=== PATIENT | female | born 1955 | race Two or more races ===

== ENCOUNTER 2020-10-04 10:53 | Emergency (ER) | payer BC ==
[~2020-10-04] VITALS: Ht 160 cm; Wt 49.0 kg
[2020-10-04 12:12] LABS: BASOPHILS % (AUTO) 0.1 % (0.0-2.0); EOSINOPHILS % (AUTO) 0.4 % (0.0-6.0); HEMATOCRIT 34 % (33-45); HEMOGLOBIN 11.6 g/dL (11.5-14.8); LYMPHOCYTES # (AUTO) 1.7 /CMM (0.8-4.8); LYMPHOCYTES % (AUTO) 79.1 % (20.0-44.0); MEAN CORPUSCULAR HGB CONC 34 g/dl (31.0-36.0); MEAN CORPUSCULAR VOLUME 96 fL (82-100); MONOCYTES # (AUTO) 0.2 /CMM (0.1-1.30); MONOCYTES % (AUTO) 11.2 % (2.0-12.0); NEUTROPHILS # (AUTO) 0.2 /CMM (1.8-8.9); NEUTROPHILS % (AUTO) 9.2 % (43.0-81.0); PLATELET COUNT (AUTO) 288 /CMM (150-450); RED BLOOD CELL COUNT(AUTO) 3.56 MIL/uL (4.0-5.2); WHITE BLOOD COUNT (AUTO) 2.2 K/uL (4.3-11.0)
[2020-10-04 12:17] LABS: BILIRUBIN,URINE Negative (NEGATIVE); COLOR,URINE YELLOW (YELLOW); LEUKOCYTE ESTERASE ,URINE Trace (NEGATIVE); NITRITE, URINE Negative (NEGATIVE); PH,URINE 7.5 (5.0-8.0); PROTEIN,URINE Negative (NEGATIVE); UGLUCOSE Negative (NEGATIVE); UROBILINOGEN,URINE 0.2 EU/dL (0.2)
[2020-10-04 12:21] LABS: CALCIUM, SERUM 10.4 mg/dL (8.5-10.1); CREATININE 0.5 mg/dL (0.6-1.3); POTASSIUM 3.4 mmol/L (3.5-5.1)
[2020-10-04 12:22] LABS: BACTERIA,URINE Few /HPF (None Seen); SQUAMOUS EPITHELIAL CELL,UR Few /HPF (None Seen)
[2020-10-04 12:27] LABS: ALBUMIN 3.9 g/dL (3.4-5.0); BILIRUBIN,DIRECT 0.1 mg/dL (0.0-0.2); BILIRUBIN,TOTAL 0.4 mg/dL (0.2-1.0); TOTAL PROTEIN, SERUM 7.1 g/dL (6.4-8.2)
--- NOTE | 2020-10-04 12:35 | NUR ---
CALLED DR. DREW REQUESTED BY DR. CAT.
[2020-10-04] MEDS ORDERED: HYDROCODONE/APAP 5/325MG TABLET ONE (12:40)
--- NOTE | 2020-10-04 12:52 | NUR ---
PATIENT CAME BACK FROM CT.
[2020-10-04] MEDS ORDERED: HYDROCODONE/APAP 5/325MG TABLET PO ONE (13:00)
[2020-10-04] MEDS ORDERED: POLY17PO4 PO (13:27)
[2020-10-04] MEDS ORDERED: ONDA4TAB5 PO (13:27)
[2020-10-04] MEDS ORDERED: OXYC-128 PO (13:27)
--- NOTE | 2020-10-04 13:47 | NUR ---
Patient discharged to home in stable condition. Written and verbal after care instructions given to daughter and patient, both verbalizes understanding of instruction.
[2020-10-04 13:48] VITALS: BP 124/76
[2020-10-04 15:36] LABS: BAND % (MANUAL) 2 % (0.0-5.0); LYMPHOCYTES % (MANUAL) 78 % (16-48); NEUTROPHILS % (MANUAL) 5 (42-76); REACTIVE LYMPHOCYTES 6 % (0-0)
[2020-10-04 15:37] LABS: MONOCYTES % (MANUAL) 9 % (0-11.0)
== END 2020-10-04 13:48 | disposition home or self-care (01) ==
LOC: ER 11:01
DX: K59.00 Constipation, unspecified (principal); R11.2 Nausea with vomiting, unspecified; D70.9 Neutropenia, unspecified; Z85.71 Personal history of Hodgkin lymphoma
CPT/HCPCS: 36415; 80048-TC; 80076-TC; 81001; 83690-TC; 85025-TC

== ENCOUNTER 2020-12-04 11:59 | Inpatient (IN) | payer BC ==
[~2020-12-04] VITALS: Ht 160 cm; Wt 43.1 kg
[~2020-12-04 11:59] MED LIST: ONDA4TAB5 PO; OXYC-128 PO; POLY17PO4 PO
--- NOTE | 2020-12-04 12:16 | NUR ---
BIBDAUGHTER FROM HOME TO ER 6. AAOX4. NOT IN RESP DSITRESS. AMBULATORY. BROUGHT IN FOR FEVER, DAUGTHER REPORT 104. UPON TRUAGE PT'S TEMP NOTED @ 100.5. PT NOTED TACHYCARDIC 120S. WAS AT THE BEDSIDE FOR EVAL.
[2020-12-04] MEDS ORDERED: CEFEPIME 1 GM in IV D5W 50 ML IV ONE (12:30)
[2020-12-04] MEDS ORDERED: VANCOMYCIN 1 GM in IV D5W 250 ML IV ONE (12:30)
[2020-12-04] MEDS ORDERED: IV NS 0.9% 1,000 ML BAG IV ONE (12:30)
[2020-12-04 12:44] LABS: BASOPHILS % (AUTO) 0.4 % (0.0-2.0); EOSINOPHILS % (AUTO) 0.2 % (0.0-6.0); HEMATOCRIT 24 % (33-45); HEMOGLOBIN 8.1 g/dL (11.5-14.8); LYMPHOCYTES # (AUTO) 1.2 K/uL (0.8-4.8); LYMPHOCYTES % (AUTO) 11.9 % (20.0-44.0); MEAN CORPUSCULAR HGB CONC 34 g/dl (31.0-36.0); MEAN CORPUSCULAR VOLUME 98 fL (82-100); MONOCYTES # (AUTO) 1.2 K/uL (0.1-1.30); MONOCYTES % (AUTO) 11.9 % (2.0-12.0); NEUTROPHILS # (AUTO) 7.6 K/uL (1.8-8.9); NEUTROPHILS % (AUTO) 75.6 % (43.0-81.0); PLATELET COUNT (AUTO) 374 K/uL (150-450); RED BLOOD CELL COUNT(AUTO) 2.46 MIL/uL (4.0-5.2); WHITE BLOOD COUNT (AUTO) 10.1 K/uL (4.3-11.0)
[2020-12-04 12:51] LABS: CALCIUM, SERUM 9.1 mg/dL (8.5-10.1); CARBON DIOXIDE 28 mmol/L (21-32); CHLORIDE 95 mmol/L (98-107); CREATININE 0.5 mg/dL (0.6-1.3); GLUCOSE 98 mg/dL (74-106); POTASSIUM 3.7 mmol/L (3.5-5.1); SODIUM SERUM 128 mmol/L (136-145); UREA NITROGEN, BLOOD 8 mg/dL (7-18)
[2020-12-04 12:57] LABS: ALANINE AMINOTRANSFERASE 13 U/L (12-78); ALBUMIN 2.9 g/dL (3.4-5.0); ALKALINE PHOSPHATASE 66 U/L (46-116); ASPARTATE AMINOTRANSFERASE 19 U/L (15-37); BILIRUBIN,DIRECT 0.1 mg/dL (0.0-0.2); BILIRUBIN,TOTAL 0.4 mg/dL (0.2-1.0); TOTAL PROTEIN, SERUM 6.4 g/dL (6.4-8.2)
[2020-12-04 13:10] LABS: BAND % (MANUAL) 17 % (0.0-5.0); LYMPHOCYTES % (MANUAL) 18 % (16-48); METAMYELOCYTES % 3 % (0-0); MONOCYTES % (MANUAL) 8 % (0-11.0); MYELOCYTES % 2 % (0-0); NEUTROPHILS % (MANUAL) 52 (42-76)
[2020-12-04] MEDS ORDERED: DEXA4TAB PO (13:10)
[2020-12-04 13:23] LABS: BILIRUBIN,URINE NEGATIVE (NEGATIVE); COLOR,URINE YELLOW (YELLOW); LEUKOCYTE ESTERASE ,URINE TRACE (NEGATIVE); NITRITE, URINE NEGATIVE (NEGATIVE); PH,URINE 6.5 (5.0-8.0); PROTEIN,URINE NEGATIVE (NEGATIVE); UGLUCOSE NEGATIVE (NEGATIVE); UROBILINOGEN,URINE 0.2 EU/dL (0.2)
--- NOTE | 2020-12-04 13:35 | NUR ---
paged Dr. Yao (onjcologist) and left a message
[2020-12-04 13:36] LABS: BACTERIA,URINE Few /HPF (None Seen); RBC,URINE 0-2 /HPF (0-2); SQUAMOUS EPITHELIAL CELL,UR Moderate /HPF (None Seen)
[2020-12-04] MEDS ORDERED: ACETAMINOPHEN ES 500 MG TABLET ONE (15:30)
[2020-12-04] MEDS ORDERED: ACETAMINOPHEN ES 500 MG TABLET PO ONE (15:30)
[2020-12-04] MEDS ORDERED: MAGNESIUM HYDROXIDE 30 ML UDC PO PRN (16:00)
[2020-12-04] MEDS ORDERED: HYDROCODONE/APAP 5/325MG TABLET PO PRN (16:00)
[2020-12-04] MEDS ORDERED: MORPHINE SULFATE INJ 2 MG/ML DISP.SYRIN IV PRN (16:00)
[2020-12-04] MEDS ORDERED: ONDANSETRON HCL/PF 4 MG/2 ML VIAL IVP PRN (16:00)
[2020-12-04] MEDS ORDERED: TEMAZEPAM 15 MG CAPSULE PO PRN (16:00)
[2020-12-04] MEDS ORDERED: DEXAMETHASONE 4 MG TABLET PO SCH (16:00)
[2020-12-04] MEDS ORDERED: MAG HYDROX/AL HYDROX/SIMETH 30 ML UDC PO PRN (16:00)
[2020-12-04] MEDS ORDERED: Z GUARD REMEDY 2 OZ OINT TP PRN (16:00)
--- NOTE | 2020-12-04 17:03 | NUR ---
followed up with laboratory regarding covid result
--- NOTE | 2020-12-04 17:30 | NUR ---
room assignement: [id number]
--- NOTE | 2020-12-04 17:35 | NUR ---
REPORT GIVEN TO ANNIE BELTRE FOR MACHO
--- NOTE | 2020-12-04 18:30 | NUR ---
PT TRANSPORTED TO UNIT ON GURNEY WITH EMT AND RN AT BEDSIDE W/ ACLS PROTOCOL. NAD NOTED DURING TRANSPORT.
--- NOTE | 2020-12-04 18:41 | NUR ---
COMPASS OPERATOR ADMITTING NOTES RECEIVED ADMISSION FROM ER. PATIENT MEDICALLY STABLE AT THIS TIME, A/O X4, ON OXYGEN THERAPY AT 2 LPM VIA NASAL CANULA. TELE MONITOR WITH A CURRENT READING OF SR. IV ACCESS ON LFA G # 20 PRESENT AND INTACT. SAFETY PRECAUTIONS IN PLACE; BED IN LOW POSITION AND LOCKED, RAILS UP X2, CALL LIGHT WITHIN REACH. WILL CONTINUE TO MONITOR PATIENT.
[2020-12-04] MEDS: ENOXAPARIN SODIUM 40 MG/0.4 ML DISP.SYRIN SQ SCH (18:48)
--- NOTE | 2020-12-04 19:06 | NUR ---
MANAGER TRANSMISSION NOTES PATIENT RESTING COMFORTABLY. WILL ENDORSE TO [employer] NURSE FOR MACHO.
[2020-12-04 19:30] VITALS: BP 108/58
--- NOTE | 2020-12-04 19:30 | NUR ---
TELERN HALFLY AWAKE, DAUGHTER AT BEDSIDE. PROVIDED ADMISSION INFO . PATIENT IS ESTONIAN SPEAKING. DAUGHTER TRANSLATING. COOPERATIVE, APPEARS DEPRESSED, STATED WAS SENT BY DR. DREW FROM OFFICE TO BE ADMITTED SEC TO [facility]PS[facility] R/T UTI AND POSS CAP. NO SOB, 95% ON RA. CONTINENT/INCONTINENT. KEPT COMFORTABLE. SAFETY PRECAUTIONS EMPHASIZED WELL UNDERSTTOD. REMINDED TO CALL STAFF FOR ANY ASSISTANCE OR DISCOMFORTS, CALL LIGHT WITHIN REACH. ALL NEEDS ATTENDED. AFEBRILE FOR NOW.
[2020-12-04 20:00] VITALS: BP 108/58
[2020-12-04] MEDS: CEFEPIME 1 GM in IV D5W 50 ML IV SCH (21:16)
[2020-12-04] MEDS: IV NS 0.9% 1,000 ML IV PRN (21:21)
[2020-12-04] MEDS: VANCOMYCIN 0.75 GM in IV D5W 250 ML IV SCH (22:05)
[2020-12-05] VITALS (7 sets, daily range): BP systolic 99–129; BP diastolic 59–62
--- NOTE | 2020-12-05 02:54 | NUR ---
TELERN SR ON THE MONITOR, IVF INFUSING WELL. DUE ANTIBIOTICS ADMINISTERED/ LOW GRADE TEMP 99.8. WAS INCONTINENT, KEPT DRY CLEAN AND COMFORTABLE. CLOSELY WATCHE.D
[2020-12-05] MEDS: VANCOMYCIN 0.75 GM in IV D5W 250 ML IV SCH ×3 (06:10→22:03)
[2020-12-05 06:43] LABS: BASOPHILS # (AUTO) 0.1 K/uL (0.0-0.2); HEMATOCRIT 23 % (33-45); HEMOGLOBIN 7.8 g/dL (11.5-14.8); LYMPHOCYTES # (AUTO) 0.5 K/uL (0.8-4.8); LYMPHOCYTES % (AUTO) 5.3 % (20.0-44.0); MEAN CORPUSCULAR HGB CONC 34 g/dl (31.0-36.0); MEAN CORPUSCULAR VOLUME 98 fL (82-100); MONOCYTES # (AUTO) 0.5 K/uL (0.1-1.30); NEUTROPHILS # (AUTO) 8.8 K/uL (1.8-8.9); NEUTROPHILS % (AUTO) 88.7 % (43.0-81.0); PLATELET COUNT (AUTO) 392 K/uL (150-450); RED BLOOD CELL COUNT(AUTO) 2.35 MIL/uL (4.0-5.2)
--- NOTE | 2020-12-05 06:50 | NUR ---
TELERN ASSISTED TO BSC VOIDED FREELY. IVF CONTINUED.. ALL NEEDS ATENDED.
[2020-12-05 07:01] LABS: CALCIUM, SERUM 8.6 mg/dL (8.5-10.1); CREATININE 0.4 mg/dL (0.6-1.3); MAGNESIUM 2.3 mg/dL (1.8-2.4); PHOSPHORUS 3.2 mg/dL (2.5-4.9); POTASSIUM 3.7 mmol/L (3.5-5.1)
[2020-12-05 07:14] LABS: THYROID STIMULATING HORMONE 0.433 uIU/mL (0.358-3.74); URIC ACID 2.4 mg/dL (2.6-7.2)
--- NOTE | 2020-12-05 07:52 | NUR ---
TELE/RN OPENING NOTES RECEIVED PATIENT IN BED, ALERT AND ORIENTED X3, ABLE TO MAKE NEEDS KNOWN. STABLE ON ROOM AIR. NO DISTRESS NOTED AT THIS TIME. SAFETY PRECAUTIONS IN PLACED. BED LOCKED ON LOWEST POSITION, SIDE RAILS UPX2, CALL LIGHT WITHIN REACH. WILL CONTINUE TO MONITOR PATIENT.
[2020-12-05] MEDS: PANTOPRAZOLE 40 MG TABLET.DR PO SCH (08:34)
[2020-12-05] MEDS ORDERED: DEXAMETHASONE 4 MG TABLET PO SCH (09:00)
[2020-12-05] MEDS: CEFEPIME 1 GM in IV D5W 50 ML IV SCH ×2 (09:06→20:43)
[2020-12-05 10:31] LABS: BAND % (MANUAL) 22 % (0.0-5.0); LYMPHOCYTES % (MANUAL) 4 % (16-48); MONOCYTES % (MANUAL) 4 % (0-11.0); NEUTROPHILS % (MANUAL) 70 (42-76)
[2020-12-05] MEDS: ENSURE ENLIVE 237 ML LIQUID (VANILLA) PO SCH ×2 (12:33→17:05)
[2020-12-05 15:17] LABS: FERRITIN 1410 ng/mL (8-388)
[2020-12-05 15:59] LABS: IRON, SERUM 10 ug/dl (50-175); TOTAL IRON BINDING CAPACITY 134 ug/dl (250-450)
[2020-12-05] MEDS: ACETAMINOPHEN 325 MG TABLET PO PRN (19:22)
--- NOTE | 2020-12-05 19:30 | NUR ---
MS RN NOTES RECEIVED PATIENT IN BED, AWAKE, A&O X 4, ON ROOM AIR TOLERATING WELL, IN NO ACUTE DISTRESS NOTED. IV ACCESS ON LFA G#20 WITH AN ONGOING IVF OF NS 1L X 75CC/HR, INFUSING WELL, NO S/SX OF INFILTRATION NOTED. NO COMPLAINTS OF PAIN AT THIS TIME; SAFETY PRECAUTIONS IN PLACE; BED ON LOWEST LOCKED POSITION, SIDE RAILS UP X 2, CALL LIGHT WITHIN EASY REACH. WILL CONTIUE TO MONITOR PATIENT'S STATUS. .
--- NOTE | 2020-12-05 19:41 | NUR ---
TELE/RN CLOSING NOTES PATIENT IN BED, ALERT AND ORIENTED X3, ABLE TO MAKE NEEDS KNOWN. STABLE ON ROOM AIR. NO DISTRESS NOTED AT THIS TIME. SAFETY PRECAUTIONS IN PLACED. BED LOCKED ON LOWEST POSITION, SIDE RAILS UPX2, CALL LIGHT WITHIN REACH. WILL ENDORSED TO THE NEXT SHIFT FOR MACHO..
--- NOTE | 2020-12-05 20:00 | NUR ---
RN NOTES PATIENT'S TEMP IS 102.7, TYLENOL WAS GIVEN AT 1922. WILL CONTINUE TO MONITOR PATIENT'S TEMP.
[2020-12-05] MEDS: ENOXAPARIN SODIUM 40 MG/0.4 ML DISP.SYRIN SQ SCH (20:46)
[2020-12-05] MEDS: IV NS 0.9% 1,000 ML IV PRN (20:59)
--- NOTE | 2020-12-05 21:19 | NUR ---
RN NOTES RECHECKED PATIENT'S REMP. RESULT WAS 99.7F. WILL CONTINUE TO MONITOR.
[2020-12-06] MEDS: VANCOMYCIN 0.75 GM in IV D5W 250 ML IV SCH ×3 (05:01→22:26)
[2020-12-06 06:39] LABS: CALCIUM, SERUM 8.2 mg/dL (8.5-10.1); CREATININE 0.5 mg/dL (0.6-1.3); POTASSIUM 3.1 mmol/L (3.5-5.1)
[2020-12-06 06:46] LABS: BASOPHILS # (AUTO) 0.1 K/uL (0.0-0.2); EOSINOPHILS % (AUTO) 0.1 % (0.0-6.0); HEMATOCRIT 22 % (33-45); HEMOGLOBIN 7.6 g/dL (11.5-14.8); LYMPHOCYTES # (AUTO) 0.8 K/uL (0.8-4.8); LYMPHOCYTES % (AUTO) 7.2 % (20.0-44.0); MEAN CORPUSCULAR HGB CONC 34 g/dl (31.0-36.0); MEAN CORPUSCULAR VOLUME 97 fL (82-100); MONOCYTES % (AUTO) 8.8 % (2.0-12.0); NEUTROPHILS # (AUTO) 9.5 K/uL (1.8-8.9); NEUTROPHILS % (AUTO) 82.9 % (43.0-81.0); PLATELET COUNT (AUTO) 408 K/uL (150-450); RED BLOOD CELL COUNT(AUTO) 2.31 MIL/uL (4.0-5.2); WHITE BLOOD COUNT (AUTO) 11.5 K/uL (4.3-11.0)
--- NOTE | 2020-12-06 06:49 | NUR ---
MS RN CLOSING NOTES PATIENT IN BED, AWAKE, A&O X 4, ON ROOM AIR TOLERATING WELL, IN NO ACUTE DISTRESS NOTED. PATIENT IS AFEBRILE AT THIS TIME, NO COMPLAINTS OF PAIN. IV ACCESS ON LFA G#20 WITH AN ONGOING IVF OF NS 1L X 75CC/HR, INFUSING WELL, NO S/SX OF INFILTRATION NOTED. NO COMPLAINTS OF PAIN AT THIS TIME; SAFETY PRECAUTIONS IN PLACE; BED ON LOWEST LOCKED POSITION, SIDE RAILS UP X 2, CALL LIGHT WITHIN EASY REACH. ALL NEEDS ATTENDED AND MET, WILL ENDORSE TO ONCOMING SHIFT FOR MACHO.
--- NOTE | 2020-12-06 07:21 | NUR ---
MS RN OPENING NOTES RECEIVED PATIENT IN BED AWAKE, A/O X 4. ABLE TO MAKE NEEDS KNOWN, DENIES PAIN OR ANY DISCOMFORTS AT THIS TIME. ON ROOM AIR, TOLERATING WELL WITH NO ACUTE RESPIRATORY DISTRESS NOTED. IV ACCESS ON LFA G#20 INTACT AND PATENT WITH IVF OF NS @ 75CC/HR, INFUSING WELL, NO S/S OF INFILTRATION NOTED. SAFETY PRECAUTIONS IN PLACE: BED IN LOWEST LOCKED POSITION, SIDE RAILS UP X 2, CALL LIGHT WITHIN EASY REACH. WILL CONTINUE TO MONITOR PT ACCORDINGLY.
[2020-12-06 08:00] VITALS: BP 127/65
[2020-12-06] MEDS: ENSURE ENLIVE 237 ML LIQUID (VANILLA) PO SCH ×3 (08:21→17:22)
[2020-12-06] MEDS: CEFEPIME 1 GM in IV D5W 50 ML IV SCH (08:21)
[2020-12-06] MEDS: PANTOPRAZOLE 40 MG TABLET.DR PO SCH (08:22)
[2020-12-06 09:10] LABS: BAND % (MANUAL) 1 % (0.0-5.0); LYMPHOCYTES % (MANUAL) 5 % (16-48); MONOCYTES % (MANUAL) 10 % (0-11.0); NEUTROPHILS % (MANUAL) 84 (42-76)
[2020-12-06] MEDS ORDERED: POTASSIUM CHLORIDE 20 MEQ TAB.PRT.SR PO ONE (09:30)
--- NOTE | 2020-12-06 11:15 | NUR ---
RN NOTES PT NOTED WITH LOW LEVEL POTASSIUM 3.1 THIS MORNING. ADMINISTERED K-DUR 40MEQ PO ORDERED.
[2020-12-06] MEDS: ACETAMINOPHEN 325 MG TABLET PO PRN (12:16)
[2020-12-06] MEDS ORDERED: MEROPENEM 500 MG in IV NS 0.9% 50 ML IV ONE (13:00)
--- NOTE | 2020-12-06 13:28 | NUR ---
RN NOTES PT WITH T 102.7F THIS MORNING, TYLENOL 650MG PO GIVEN AND COOLING MEASURES DONE. PT CONTINUES ON IV ABX'S ORDERED. DR GAVIN MADE AWARE. WILL CONTINUE TO MONITOR.
--- NOTE | 2020-12-06 17:19 | NUR ---
RN NOTES PT'S TEMP WAS 97.9f AT 1600. WILL CONTINUE TO MONITOR
--- NOTE | 2020-12-06 18:35 | NUR ---
MS RN CLOSING NOTES PATIENT IN BED AWAKE AND WATCHING TV AT THIS TIME. A/O X 4. ABLE TO MAKE NEEDS KNOWN. ON ROOM AIR, TOLERATING WELL WITH NO ACUTE RESPIRATORY DISTRESS NOTED DURING SHIFT. PT HAS PORT-A-CATH ON LCW IN PLACE. IV ACCESS ON LFA G#20 INTACT, PATENT AND FLUSHES WELL, NO S/S OF INFILTRATION NOTED AT SITE NOTED. ALL NEEDS AND CARE ATTENDED WELL. SAFETY PRECAUTIONS KEPT IN PLACE: BED IN LOWEST LOCKED POSITION, SIDE RAILS UP X 2, CALL LIGHT AND BEDSIDE TABLE WITHIN EASY REACH OF PT. WILL ENDORSE MACHO TO ENTERPRISE MOBILITY ARCHITECT NURSE.
--- NOTE | 2020-12-06 19:45 | NUR ---
MS RN OPENING NOTES RECEIVED PATIENT IN BED ASLEEP, EASILY AWAKEN BY VERBAL AND TACTILE STIMULI. ABLE TO MAKE NEEDS KNOWN, NO COMPLAINTS OF PAIN AT THIS TIME. ON ROOM AIR, TOLERATING WELL WITH NO ACUTE RESPIRATORY DISTRESS NOTED. IV ACCESS ON LFA G#20 INTACT AND PATENT WITH IVF OF NS @ 75CC/HR, INFUSING WELL, NO S/S OF INFILTRATION NOTED. SAFETY PRECAUTIONS IN PLACE: BED IN LOWEST LOCKED POSITION, SIDE RAILS UP X 2, CALL LIGHT WITHIN EASY REACH. WILL CONTINUE TO MONITOR PT ACCORDINGLY.
[2020-12-06 20:00] VITALS: BP 117/66
[2020-12-06] MEDS: MEROPENEM 500 MG in IV NS 0.9% 100 ML IV SCH (20:26)
[2020-12-06] MEDS: ENOXAPARIN SODIUM 40 MG/0.4 ML DISP.SYRIN SQ SCH (20:35)
[2020-12-07] MEDS: MEROPENEM 500 MG in IV NS 0.9% 100 ML IV SCH ×3 (04:25→20:32)
[2020-12-07] MEDS: ACETAMINOPHEN 325 MG TABLET PO PRN ×2 (04:37→18:37)
--- NOTE | 2020-12-07 04:40 | NUR ---
RN NOTES PATIENT'S TEMP OF 102.4. TYLENOL GIVEN ORDERED, COOLING MEASURES DONE. WILL CONTINUE TO MONITOR.
--- NOTE | 2020-12-07 05:21 | NUR ---
RN NOTES RECHECKED TEMP 99.7.
[2020-12-07 06:23] LABS: BASOPHILS # (AUTO) 0.2 K/uL (0.0-0.2); BASOPHILS % (AUTO) 1.3 % (0.0-2.0); EOSINOPHILS % (AUTO) 0.1 % (0.0-6.0); HEMATOCRIT 22 % (33-45); HEMOGLOBIN 7.4 g/dL (11.5-14.8); LYMPHOCYTES # (AUTO) 0.8 K/uL (0.8-4.8); MEAN CORPUSCULAR HGB CONC 34 g/dl (31.0-36.0); MEAN CORPUSCULAR VOLUME 96 fL (82-100); MONOCYTES % (AUTO) 8.5 % (2.0-12.0); NEUTROPHILS # (AUTO) 9.8 K/uL (1.8-8.9); NEUTROPHILS % (AUTO) 83.1 % (43.0-81.0); PLATELET COUNT (AUTO) 401 K/uL (150-450); RED BLOOD CELL COUNT(AUTO) 2.28 MIL/uL (4.0-5.2); WHITE BLOOD COUNT (AUTO) 11.8 K/uL (4.3-11.0)
[2020-12-07] MEDS: VANCOMYCIN 0.75 GM in IV D5W 250 ML IV SCH ×3 (06:24→21:21)
--- NOTE | 2020-12-07 06:39 | NUR ---
MS RN CLOSING NOTES PATIENT IN BED ASLEEP, EASILY AWAKEN BY VERBAL AND TACTILE STIMULI. NO COMPLAINTS OF PAIN AT THIS TIME. AFEBRILE, ON ROOM AIR, TOLERATING WELL WITH NO ACUTE RESPIRATORY DISTRESS NOTED. IV ACCESS ON LFA G#20 INTACT, PATENT AND FLUSHES WELL. SAFETY PRECAUTIONS IN PLACE: BED IN LOWEST LOCKED POSITION, SIDE RAILS UP X 2, CALL LIGHT WITHIN EASY REACH. ALL NEEDS ATTENDED AND MET. WILL ENDORSED TO ONCOMING SHIFT FOR MACHO.
[2020-12-07 06:58] LABS: CREATININE 0.5 mg/dL (0.6-1.3); POTASSIUM 3.2 mmol/L (3.5-5.1)
[2020-12-07 08:00] VITALS: BP 93/54
[2020-12-07] MEDS ORDERED: POTASSIUM CHLORIDE 20 MEQ TAB.PRT.SR PO ONE (08:30)
[2020-12-07] MEDS: PANTOPRAZOLE 40 MG TABLET.DR PO SCH (08:53)
[2020-12-07] MEDS: ENSURE ENLIVE 237 ML LIQUID (VANILLA) PO SCH ×3 (08:59→17:30)
[2020-12-07] MEDS ORDERED: IV NS 0.9% 1,000 ML IV PRN (10:30)
[2020-12-07 12:00] VITALS: BP 101/56
--- NOTE | 2020-12-07 19:23 | NUR ---
MS RN CLOSING NOTES PATIENT IN BED AWAKE ON BED, A/O X 4. ABLE TO MAKE NEEDS KNOWN. WITH O2 AT 2LPM. PT HAS PORT-A-CATH ON LCW IN PLACE. IV ACCESS ON LFA G#20 INTACT, PATENT AND FLUSHES WELL, NO S/S OF INFILTRATION NOTED AT SITE NOTED. ALL NEEDS AND CARE ATTENDED WELL. SAFETY PRECAUTIONS KEPT IN PLACE: BED IN LOWEST LOCKED POSITION, SIDE RAILS UP X 2, CALL LIGHT AND BEDSIDE TABLE WITHIN EASY REACH OF PT. WILL ENDORSE MACHO TO PAINT PREPPER NURSE.
--- NOTE | 2020-12-07 19:42 | NUR ---
MS RN OPENING NOTES RECEIVED PT AWAKE IN BED, A/O X4, ABLE TO VERBALIZE NEEDS. RESPIRATIONS EVEN AND UNLABORED, ON ROOM AIR AND TOLERATING WELL. DENIES SOB. NO C/O PAIN OR DISCOMFORT AT THIS TIME. NOTED IV ACCESS TO L-FA #20 INTACT/PATENT. PORT-A-CATH ON LCW IN PLACE. PT IN NO ACUTE DISTRESS. PT WITH TWO DAUGHTERS AT BEDSIDE. ALL NEEDS ATTENDED TO. SAFETY MEASURES IN PLACE, BED IN LOWEST LOCKED POSITION, S/R UP X2, CALL LIGHT AND TABLE WITHIN EASY REACH. WILL CONTINUE TO MONITOR.
[2020-12-07 20:00] VITALS: BP 115/65
--- NOTE | 2020-12-07 20:45 | NUR ---
RN NOTE PT C/O IV SITE ON L-FA IS PAINFUL. NO REDNESS OR SWELLING NOTED, NO S/S OF INFILTRATION ON SITE AND FLUSHES WELL. PT DOES NOT WANT IT USED AT THIS TIME. PT IS AGREEABLE TO START A NEW IV ON HER RIGHT ARM. IV STARTED ON R-FA G#22 X1 WITH GOOD BLOOD RETURN, AND PT TOLERATED IT WELL.
[2020-12-07] MEDS: ENOXAPARIN SODIUM 40 MG/0.4 ML DISP.SYRIN SQ SCH (20:54)
--- NOTE | 2020-12-08 04:21 | NUR ---
RN NOTE IV SITE CHECKED ON L-FA, INTACT, PATENT AND FLUSHES WELL. PT STATES, "NO MORE PAIN HERE THIS TIME."
[2020-12-08] MEDS: MEROPENEM 500 MG in IV NS 0.9% 100 ML IV SCH (04:55)
[2020-12-08] MEDS: VANCOMYCIN 0.75 GM in IV D5W 250 ML IV SCH (05:18)
--- NOTE | 2020-12-08 06:52 | NUR ---
MS RN CLOSING NOTES PT RESTING IN BED, EASILY AWAKENS TO STIMULI, A/O X4. ABLE TO VERBALIZE NEEDS. SHE DENIES ANY PAIN OR DISCOMFORT AT THIS TIME. BREATHING EVEN AND UNLABORED, ON ROOM AIR. IV ACCESS ON L-FA #20 AND R-FA #22 BOTH INTACT, PATENT AND FLUSHES WELL. PORT-A-CATH ON LCW PALPABLE IN PLACE. PT IN NO ACUTE DISTRESS. USES BEDSIDE COMMODE NEEDED WITH STANDBY ASSIST PROVIDED. SAFETY MEASURES MAINTAINED, BED IN LOWEST LOCKED POSITION, S/R UP X2, CALL LIGHT AND TABLE WITHIN EASY REACH.
--- NOTE | 2020-12-08 07:30 | NUR ---
MS RN OPENING NOTES RECEIVED PT ON BED, AWAKE, A/O X4, ABLE TO VERBALIZE NEEDS. RESPIRATIONS EVEN AND UNLABORED, ON ROOM AIR AND TOLERATING WELL. DENIES SOB. NO C/O PAIN OR DISCOMFORT AT THIS TIME. NOTED IV ACCESS TO L-FA #20 AND R-FA #22, INTACT/PATENT. PORT-A-CATH ON LCW IN PLACE. PT IN NO ACUTE DISTRES. SAFETY MEASURES IN PLACED, BED IN LOWEST LOCKED POSITION, S/R UP X2, CALL LIGHT AND TABLE WITHIN EASY REACH. WILL CONTINUE TO MONITOR.
[2020-12-08 08:00] VITALS: BP 122/66
[2020-12-08 08:11] LABS: CALCIUM, SERUM 8.6 mg/dL (8.5-10.1); CREATININE 0.3 mg/dL (0.6-1.3); POTASSIUM 3.5 mmol/L (3.5-5.1)
[2020-12-08] MEDS: PANTOPRAZOLE 40 MG TABLET.DR PO SCH (08:18)
[2020-12-08] MEDS: ENSURE ENLIVE 237 ML LIQUID (VANILLA) PO SCH (08:19)
[2020-12-08] MEDS ORDERED: POTASSIUM CHLORIDE 20 MEQ TAB.PRT.SR PO ONE (11:00)
--- NOTE | 2020-12-08 12:30 | NUR ---
MS PROFILER HAND NOTES PATIENT WAS SEEN BY DR. GAVIN TODAY WITH ORDERS FOR DISCHARGE TO HOME. DISCHARGE INSTRUCTION AND EDUCATION PROVIDED TO PATIENT AND EXPLAINED MEDICATIONS AND PRESCRIPTIONS. PATIENT VERBALIZED UNDERSTANDING. DISCHARGE FORM AND BELONGINGS LIST FORM SIGNED BY PATIENT. ALL BELONGINGS ACCOUNTED FOR. NAME WRIST BAND AND IV LINE REMOVED. PATIENT WAS PICKED UP BY DAUGHTERS VIA PRIVATE CAR. CHARGE NURSE AND MD ARE AWARE OF DISCHARGE.
== END 2020-12-08 12:30 | disposition home or self-care (01) | DRG 871 ==
LOC: ER 11:59 → TELE 17:45 → MED 12-05 12:38
PROVIDERS: ADMIT Nurse Practitioner Acute Care; ATTEND Nurse Practitioner Acute Care
DX: A41.9 Sepsis, unspecified organism (principal); J15.9 Unspecified bacterial pneumonia; N39.0 Urinary tract infection, site not specified; E44.0 Moderate protein-calorie malnutrition; C81.90 Hodgkin lymphoma, unspecified, unspecified site; D84.9 Immunodeficiency, unspecified; E27.3 Drug-induced adrenocortical insufficiency; E87.1 Hypo-osmolality and hyponatremia; B96.89 Other specified bacterial agents as the cause of diseases classified elsewhere; D63.8 Anemia in other chronic diseases classified elsewhere; Z20.822 Contact with and (suspected) exposure to COVID-19; Z79.899 Other long term (current) drug therapy; E86.1 Hypovolemia; M85.80 Other specified disorders of bone density and structure, unspecified site; E87.6 Hypokalemia; I10 Essential (primary) hypertension; Z92.21 Personal history of antineoplastic chemotherapy; Z98.890 Other specified postprocedural states; T38.0X5A Adverse effect of glucocorticoids and synthetic analogues, initial encounter; Y92.9 Unspecified place or not applicable; E87.8 Other disorders of electrolyte and fluid balance, not elsewhere classified
CPT/HCPCS: 36415; 71045-TC; 80048-TC; 80061-TC; 80076-TC; 80202-TC; 81001; 82728-TC; 83540-TC; 83605-TC; 83735-TC; 83880; 84100-TC; 84443-TC; 84484-TC; 84550-TC; 85025-TC; 85730-TC; 87040-TC; 87081-TC; 87086-TC; 93307-TC; 97112-TC; 97116-TC; 97530-TC; C9803; G0378; J0692; J1650; J2185; J3370; J7030; J7060; J8540